=== PATIENT | female | born 1985 | race African-American/Black ===

== ENCOUNTER 2016-06-11 11:34 | Inpatient (IN) | payer MEDICAID ==
[~2016-06-11] VITALS: Ht 162.6 cm; Wt 59.3 kg
[2016-06-11 04:00] VITALS: PULSE 91; RESP 16; TEMP 98.9; O2SAT 100
[~2016-06-11 11:34] MED LIST: ACET500T3 PO; ZOFR4TAB3 SL
[2016-06-11 11:38] VITALS: BP 122/65; PULSE 115; RESP 24; TEMP 99; O2SAT 96
[2016-06-11] MEDS ORDERED: SODIUM CHLOR 0.9% 1000 ML INJ 1,000 ML IV SCH (11:55)
[2016-06-11] MEDS ORDERED: SODIUM CHLORIDE 0.9% FLUSH 5 ML FLUSH IVF PRN (12:00)
[2016-06-11] MEDS ORDERED: MORPHINE SULFATE 4 MG/ML INJ IV PUSH ONE ×2 (12:00→12:45)
[2016-06-11] MEDS ORDERED: ONDANSETRON HCL 4 MG/2 ML VIAL IVP ONE (12:00)
--- NOTE | 2016-06-11 12:15 | PD ---
HPI Chief Complaint: Abdominal Pain Time Seen by Provider: 11:55 Travel History International Travel<30 days: No Contact w/Intl Traveler<30days: No Traveled to known affect area: No History of Present Illness HPI 31-year-old female who is 12 weeks by dates, had a ultrasound done several weeks ago which she states was okay but she does not remember her OB/ DENTURE PROCESSOR name, presents to the ER today because she states that she has had a one- week history of lower abdominal discomfort, had seen for a hospital ER last week and had been diagnosed with UTI and prescribed antibiotics. She states however, that she had been busy and had got the antibiotic prescription filled 2 days ago and has not started on it yet. She comes to the ER today with worsening and back pains, lower abdominal pains and cramping, nausea and vomiting. She denies any vaginal bleeding or any other issues. Modifying Factors: None Associated Signs & Symptoms: Back pains, lower abdominal pains, nausea and vomiting Risk Factors: , recent UTI PFSH Past Medical History Anemia: Yes Diminished Hearing: No Gastrointestinal Disorders: Yes (CONSTIPATION) Headaches: Yes Immunizations Current: Yes Migraines: Yes ?: LMP: 03/16/2016 : 6 Para: 4 Miscarriage: 1 Social History Alcohol Use: No Tobacco Use: No Substance Use: No Allergies-Medications (Allergen,Severity, Reaction): Coded Allergies: No Known Allergies (Verified , 06/11/16) Reported Meds & Prescriptions Reported Meds & Active Scripts Active Acetaminophen 500 Mg Tab 500 Mg PO Q6H PRN Zofran Odt (Ondansetron Odt) 4 Mg Tab 4 Mg SL Q8HR PRN Review of Systems Except as stated in HPI: all other systems reviewed are Neg Physical Exam Narrative GENERAL: Well-nourished, well-developed young -Citizen Of [place] female patient in moderate distress. SKIN: Warm and dry. HEAD: Normocephalic. EYES: No scleral icterus. No injection or drainage. NECK: Supple, trachea midline. CARDIOVASCULAR: Regular rate and rhythm without murmurs, gallops, or rubs. RESPIRATORY: Breath sounds equal bilaterally. No accessory muscle use. GASTROINTESTINAL: Abdomen soft, gravid, mild right lower abdominal tenderness without guarding or rebound, nondistended. MUSCULOSKELETAL: No cyanosis, or edema. BACK: Nontender without obvious deformity. Mild right CVA tenderness. Data Data Last Documented VS Vital Signs Date Time Temp Pulse Resp B/P Pulse Ox O2 Delivery O2 Flow Rate FiO2 06/11/16 14:00 74 20 99/60 99 Nasal Cannula 06/11/16 13:00 98.5 Orders Complete Blood Count With Diff (06/11/16 11:55) Comprehensive Metabolic Panel (06/11/16 11:55) Urinalysis - C+S If Indicated (06/11/16 11:55) Iv Access Insert/Monitor (06/11/16 11:55) Ecg Monitoring (06/11/16 11:55) Oximetry (06/11/16 11:55) Morphine Inj (Morphine Inj) (06/11/16 12:00) Ondansetron Inj (Zofran Inj) (06/11/16 12:00) Sodium Chlor 0.9% 1000 Ml Inj (Ns 1000 M (06/11/16 11:55) Sodium Chloride 0.9% Flush (Ns Flush) (06/11/16 12:00) Us Kidney/Renal/Bladder (06/11/16 11:57) Morphine Inj (Morphine Inj) (06/11/16 12:45) Urine Culture (06/11/16 12:05) Sodium Chlor 0.9% 1000 Ml Inj (Ns 1000 M (06/11/16 14:00) Blood Culture (06/11/16 13:59) Ampicillin-Sulbactam Inj (Unasyn Inj) (06/11/16 14:00) Labs Laboratory Tests Test 06/11/16 12:05 White Blood Count 9.6 TH/MM3 Red Blood Count 4.21 MIL/MM3 Hemoglobin 11.8 GM/DL Hematocrit 35.2 % Mean Corpuscular Volume 83.5 FL Mean Corpuscular Hemoglobin 28.1 PG Mean Corpuscular Hemoglobin 33.6 % Concent Red Cell Distribution Width 14.7 % Platelet Count 186 TH/MM3 Mean Platelet Volume 8.0 FL Neutrophils (%) (Auto) 75.4 % Lymphocytes (%) (Auto) 16.6 % Monocytes (%) (Auto) 6.6 % Eosinophils (%) (Auto) 1.1 % Basophils (%) (Auto) 0.3 % Neutrophils # (Auto) 7.2 TH/MM3 Lymphocytes # (Auto) 1.6 TH/MM3 Monocytes # (Auto) 0.6 TH/MM3 Eosinophils # (Auto) 0.1 TH/MM3 Basophils # (Auto) 0.0 TH/MM3 CBC Comment DIFF FINAL Differential Comment Urine Color LIGHT-YELLOW Urine Turbidity HAZY Urine pH 8.0 Urine Specific [place] 1.009 Urine Protein TRACE mg/dL Urine Glucose (UA) NEG mg/dL Urine Ketones NEG mg/dL Urine Occult Blood TRACE Urine Nitrite NEG Urine Bilirubin NEG Urine Urobilinogen LESS THAN 2.0 MG/DL Urine Leukocyte Esterase LARGE Urine RBC 14 /hpf Urine WBC /hpf Urine Squamous Epithelial 2 /hpf Cells Urine Bacteria OCC /hpf Microscopic Urinalysis Comment CULTURE INDICATED Sodium Level 135 MEQ/L Potassium Level 3.7 MEQ/L Chloride Level 103 MEQ/L Carbon Dioxide Level 26.3 MEQ/L Anion Gap 6 MEQ/L Blood Urea Nitrogen 6 MG/DL Creatinine 0.73 MG/DL Estimat Glomerular Filtration 114 ML/MIN Rate Random Glucose 86 MG/DL Calcium Level 8.9 MG/DL Total Bilirubin 0.7 MG/DL Aspartate Amino Transf 14 U/L (AST/SGOT) Alanine Aminotransferase 14 U/L (ALT/SGPT) Alkaline Phosphatase 61 U/L Total Protein 7.6 GM/DL Albumin 3.4 GM/DL [facility] Medical Decision Making Medical Screen Exam Complete: Yes Emergency Medical Condition: Yes Medical Record Reviewed: Yes Interpretation(s) Laboratory Tests Test 06/11/16 12:05 Neutrophils (%) (Auto) 75.4 % (16.0-70.0) Urine Turbidity HAZY (CLEAR) Urine Occult Blood TRACE (NEG) Urine Leukocyte Esterase LARGE (NEG) Urine RBC 14 /hpf (0-3) Urine Bacteria OCC /hpf (NONE) Sodium Level 135 MEQ/L (136-145) Blood Urea Nitrogen 6 MG/DL (7-18) Aspartate Amino Transf 14 U/L (15-37) (AST/SGOT) Last 24 hours Impressions Renal Ultrasound 06/11/16 [id number] Signed Impressions: Service Date/Time: June 12:39 - CONCLUSION: Mild right hydronephrosis. This is a finding commonly seen in . Diffuse color Doppler flow of the right kidney appears somewhat prominent. Question any clinical evidence of pyelonephritis. Lincoln Guevara MD Differential Diagnosis Lower abdominal pain, back pains, nausea and vomitinghyperemesis gravidarum versus UTI versus pyelonephritis versus threatened AB Narrative Course On exam, she seems to have right sided symptoms. There is no significant guarding or rebound. Transabdominal ultrasound done by me shows IUP with good heart tones and movements. Her lab work did not indicate significant sepsis or dehydration or metabolic issues. It shows significant UTI. IV antibiotics were initiated in the ER to cultures were drawn. Ultrasound of the kidneys were done and there is some mild right sided hydronephrosis. At this point, patient appears to be doing badly at home, vomiting, in significant distress in the ER. My plan would be to admit her as an observation for further treatment. In addition, considering the right sided pain, and acute appendicitis cannot completely be ruled out although it is less likely considering clinical picture and lab work. However, I have talked her about obtaining CAT scan of the abdomen pelvis for further evaluation. I have talked her about radiation risk. Patient states that she wants to defer at this time. In addition, I have talked to OB ER physician regarding her case and he states that the patient can be medically admitted as an observation and consult to OB/ DENTURE PROCESSOR as needed. Case is discussed with Dr. Bowen for admission. Procedures Procedure Narrative Transabdominal ultrasound was done by me in the ER and shows IUP with good heart tones. Diagnosis Primary Impression: ACUTE PYELONEPHRITIS Admitting Information Admitting Physician Requests: Admit Fredy Weldon MD Jun 11, 2016 12:15 Fredy Weldon MD Jun 11, 2016 12:15
[2016-06-11 12:30] LABS: AUTOMATED NEUTROPHIL # 7.2 TH/MM3 (1.8-7.7); BASOPHIL % 0.3 % (0.0-2.0); EOSINOPHIL # 0.1 TH/MM3 (0-0.4); EOSINOPHIL % 1.1 % (0.0-4.0); HEMATOCRIT 35.2 % (35.0-46.0); HEMO FLAGS DIFF FINAL; LYMPH % 16.6 % (9.0-44.0); LYMPHOCYTE # 1.6 TH/MM3 (1.0-4.8); MEAN CELL VOLUME 83.5 FL (80.0-100.0); MEAN CORPUSCULAR HEMOGLOBIN 28.1 PG (27.0-34.0); MEAN CORPUSCULAR HGB CONC 33.6 % (32.0-36.0); MONO % 6.6 % (0.0-8.0); NEUT % 75.4 % (16.0-70.0); PLATELET COUNT 186 TH/MM3 (150-450); RED BLOOD COUNT 4.21 MIL/MM3 (4.00-5.30); RED CELL DISTRIBUTION WIDTH 14.7 % (11.6-17.2); WHITE BLOOD COUNT 9.6 TH/MM3 (4.0-11.0)
[2016-06-11 12:46] LABS: AST (GOT) 14 U/L (15-37); BACTERIA, URINE OCC /hpf; BICARBONATE 26.3 MEQ/L (21.0-32.0); BLOOD UREA NITROGEN 6 MG/DL (7-18); BLOOD, URINE TRACE (NEG); CHLORIDE 103 MEQ/L (98-107); GLOMERULAR FILTRATION RATE 114 ML/MIN (>89); GLUCOSE,URINE NEG (NEG); KETONE, URINE NEG (NEG); NITRITE,URINE NEG (NEG); POTASSIUM 3.7 MEQ/L (3.5-5.1); SODIUM (NA) 135 MEQ/L (136-145); SQUAMOUS EPITHELIAL CELL URINE 2 /hpf (0-5); URINE COLOR LIGHT-YELLOW (YELLW/STRAW)
[2016-06-11 12:47] LABS: ANION GAP 6 MEQ/L (5-15); COMMENT (UR) CULTURE INDICATED; CULTURE IF INDICATED CULTURE INDICATED
[2016-06-11 12:50] LABS: ALKALINE PHOSPHATASE 61 U/L (45-117); ALT (GPT) 14 U/L (10-53); TOTAL BILIRUBIN ADULT 0.7 MG/DL (0.2-1.0)
[2016-06-11 13:00] VITALS: BP 117/74; PULSE 108; RESP 18; TEMP 98.5; O2SAT 100
--- NOTE | 2016-06-11 13:37 | RADRPT ---
EXAM DATE/TIME: 06/11/2016 12:39 [place] COMPARISON: No previous studies available for comparison. INDICATIONS : Right flank pain. MEDICAL HISTORY : . SURGICAL HISTORY : None. ENCOUNTER: Initial ACUITY: 2 weeks PAIN SCORE: 9/10 LOCATION: Bilateral flank MEASUREMENTS: RIGHT KIDNEY: 9.8 x 6.1 x 6.2 cm LEFT KIDNEY: 9.6 x 5.3 x 4.5 cm FINDINGS: RIGHT KIDNEY: Mild right hydronephrosis. Somewhat prominent diffuse color Doppler flow may represent inflammatory c hange. No evidence of mass. LEFT KIDNEY: Renal cortex is normal in thickness and echotexture. No hydronephrosis, stone, or mass. BLADDER: Within normal limits given the degree of distension. CONCLUSION: Mild right hydronephrosis. This is a finding commonly seen in . Diffuse colo r Doppler flow of the right kidney appears somewhat prominent. Question any clinical evidence of pyel onephritis. Lincoln Guevara MD on June 11, 2016 at 13:33 Board Certified Radiologist. This report was verified electronically.
[2016-06-11 14:00] VITALS: BP 99/60; PULSE 74; RESP 20; O2SAT 99
[2016-06-11] MEDS ORDERED: AMPICILLIN-SULBACTAM INJ 3 GM in SODIUM CHLORIDE 0.9% INJ 100 ML IV ONE (14:00)
[2016-06-11] MEDS ORDERED: SODIUM CHLOR 0.9% 1000 ML INJ 1,000 ML IV ONE ×2 (14:00→15:00)
[2016-06-11] MEDS ORDERED: DOCUSATE SODIUM 100 MG CAP PO ONE (15:00)
[2016-06-11] MEDS: HEPARIN SODIUM - SQ 10,000 UNITS/ML VIAL SQ SCH (15:00)
[2016-06-11] MEDS ORDERED: MORPHINE SULFATE 4 MG/ML INJ IV PUSH PRN ×2 (15:00→17:00)
[2016-06-11] MEDS ORDERED: ACETAMINOPHEN 325 MG TAB PO PRN ×2 (15:00)
[2016-06-11] MEDS ORDERED: SODIUM CHLORIDE 0.9% FLUSH 5 ML FLUSH FLUSH PRN (15:00)
[2016-06-11] MEDS: SODIUM CHLOR 0.9% 1000 ML INJ 1,000 ML IV SCH (15:38)
[2016-06-11] MEDS ORDERED: CALNTAB PO (15:44)
[2016-06-11] MEDS: cefTRIAXone INJ 1,000 MG in SODIUM CHLORIDE 0.9% INJ 100 ML IV SCH (17:06)
[2016-06-11] MEDS: MORPHINE SULFATE 4 MG/ML INJ IV PUSH PRN (19:28)
[2016-06-11] MEDS: SODIUM CHLORIDE 0.9% FLUSH 5 ML FLUSH FLUSH SCH (19:28)
[2016-06-11 19:29] VITALS: BP 105/62; PULSE 102; RESP 18; O2SAT 98
--- NOTE | 2016-06-11 20:50 | HHI.HP ---
[facility] Service [place] [facility] Primary Care Physician No Primary Care Physician Admission Diagnosis /right sided pyelonephritis Diagnoses: Chief Complaint: Deferred entry patient seen earlier at 1500 hrs. Right flank pain Travel History International Travel<30 Days: No Contact w/Intl Traveler <30 Da: No Traveled to Known Affected Are: No Sepsis Criteria SIRS Criteria (2 or more): Heart rate over 90, RR > 20 or PaCO2 < 32 Sepsis Criteria (SIRS+source): Infect source susp/known Criteria Outcome: Meets sepsis criteria History of Present Illness This is a 31-year-old female was currently 12 weeks who presents to [facility] complaining of onset of lower abdominal pain which started approximately 1 week ago. The patient states that she works at the [employer] and was prescribed an oral antibiotic that she dropped off at the pharmacy but never picked up. Patient states that the pain progressed up to the right flank pain. The patient complains of chills, feeling hot and cold however is unsure if she has had fevers. Patient also comments of nausea assays have vomited 3 times. The patient currently denies chest pain or shortness of breath and is complaining of severe right flank pain which she describes as 10 over 10 radiating down to the lower abdomen. Denies vaginal bleeding or vaginal discharge. Otherwise the patient denies diarrhea, cough, headache, dizziness, dark stools. Review of Systems Other As per history of present illness, other systems reviewed by me and negative. Past Family Social History Past Medical History Denies Past Surgical History Denies Reported Medications Acetaminophen 500 Mg Tab 500 Mg PO Q6H PRN Zofran Odt (Ondansetron Odt) 4 Mg Tab 4 Mg SL Q8HR PRN Allergies: Coded Allergies: No Known Allergies (Verified , 06/11/16) Active Ordered Medications Current Medications Medications (Trade) Dose Ordered Sig/Mann Route Start Time Stop Time Status Last Admin (NS 1000 ml Inj) 1,000 ml @ 100 mls/hr Q10H IV 06/11/16 14:57 06/11/16 15:38 (NS Flush) 2 ml UNSCH PRN FLUSH 06/11/16 15:00 (NS Flush) 2 ml BID FLUSH 06/11/16 21:00 06/11/16 19:28 (Tylenol) 650 mg Q4H PRN PO 06/11/16 15:00 (Heparin Inj) 5,000 units Q8H SQ 06/11/16 15:00 (Tylenol) 650 mg Q6H PRN PO 06/11/16 15:00 Morphine Sulfate 2 mg 2 mg Q3H PRN IV PUSH 06/11/16 15:00 06/11/16 19:28 (Rocephin Inj/NS Inj) 100 ml @ 200 mls/hr Q24H IV 06/11/16 16:00 06/11/16 17:06 (Protonix) 40 mg DAILY PO 06/12/16 09:00 (Morphine Inj) 1 mg Q3HR PRN IV PUSH 06/11/16 17:00 Family History Patient states hypertension runs in the family Social History My smoking, drinking alcohol or using illicit drugs. Patient is single and has 3 children. Physical Exam Vital Signs Vital Signs Date Time Temp Pulse Resp B/P Pulse Ox O2 Delivery O2 Flow Rate FiO2 06/11/16 19:29 102 18 105/62 98 Room Air 06/11/16 14:00 74 20 99/60 99 Nasal Cannula 06/11/16 13:00 100 Room Air 06/11/16 13:00 98.5 108 18 117/74 100 Room Air 06/11/16 11:47 20 06/11/16 11:38 99.0 115 24 122/65 96 Room Air Physical Exam GENERAL: This is a well-nourished, well-developed patient, in moderate to severe distress due to pain. SKIN: No rashes, ecchymoses or lesions. Cool and dry. HEAD: Atraumatic. Normocephalic. No temporal or scalp tenderness. EYES: Pupils equal round and reactive. Extraocular motions intact. No scleral icterus. No injection or drainage. ENT: Nose without bleeding, purulent drainage or septal hematoma. Throat without erythema, tonsillar hypertrophy or exudate. Uvula midline. Airway patent. NECK: Trachea midline. No JVD or lymphadenopathy. Supple, nontender, no meningeal signs. CARDIOVASCULAR: Regular rate and rhythm without murmurs, gallops, or rubs. RESPIRATORY: Clear to auscultation. Breath sounds equal bilaterally. No wheezes , rales, or rhonchi. GASTROINTESTINAL: Abdomen soft, tender to palpation of hypogastric region, gravid uterus, positive right CVA tenderness. No hepato-splenomegaly, or palpable masses. No guarding. MUSCULOSKELETAL: Extremities without clubbing, cyanosis, or edema. No joint tenderness, effusion, or edema noted. No calf tenderness. Negative Homans sign bilaterally. NEUROLOGICAL: Awake and alert. Cranial nerves II through XII intact. Motor and sensory grossly within normal limits. Five out of 5 muscle strength in all muscle groups. Normal speech. Laboratory Laboratory Tests Test 06/11/16 06/11/16 12:05 16:08 White Blood Count 9.6 Red Blood Count 4.21 Hemoglobin 11.8 Hematocrit 35.2 Mean Corpuscular Volume 83.5 Mean Corpuscular Hemoglobin 28.1 Mean Corpuscular Hemoglobin 33.6 Concent Red Cell Distribution Width 14.7 Platelet Count 186 Mean Platelet Volume 8.0 Neutrophils (%) (Auto) 75.4 Lymphocytes (%) (Auto) 16.6 Monocytes (%) (Auto) 6.6 Eosinophils (%) (Auto) 1.1 Basophils (%) (Auto) 0.3 Neutrophils # (Auto) 7.2 Lymphocytes # (Auto) 1.6 Monocytes # (Auto) 0.6 Eosinophils # (Auto) 0.1 Basophils # (Auto) 0.0 CBC Comment DIFF FINAL Differential Comment Urine Color LIGHT-YELLOW Urine Turbidity HAZY Urine pH 8.0 Urine Specific [place] 1.009 Urine Protein TRACE Urine Glucose (UA) NEG Urine Ketones NEG Urine Occult Blood TRACE Urine Nitrite NEG Urine Bilirubin NEG Urine Urobilinogen LESS THAN 2.0 Urine Leukocyte Esterase LARGE Urine RBC 14 Urine WBC Urine Squamous Epithelial 2 Cells Urine Bacteria OCC Microscopic Urinalysis Comment CULTURE INDICATED Sodium Level 135 Potassium Level 3.7 Chloride Level 103 Carbon Dioxide Level 26.3 Anion Gap 6 Blood Urea Nitrogen 6 Creatinine 0.73 Estimat Glomerular Filtration 114 Rate Random Glucose 86 Calcium Level 8.9 Total Bilirubin 0.7 Aspartate Amino Transf 14 (AST/SGOT) Alanine Aminotransferase 14 (ALT/SGPT) Alkaline Phosphatase 61 Total Protein 7.6 Albumin 3.4 Lactic Acid Level 0.5 Date/Time Procedure Status Source Growth 06/11/16 14:20 Aerobic Blood Culture Received Blood Peripheral Pending 06/11/16 14:20 Anaerobic Blood Culture Received Blood Peripheral Pending 06/11/16 12:05 Urine Culture Received Urine Random Urine Pending Result Diagram: 06/11/16 1205 06/11/16 1205 Septic Shock Reassessment Heart: Regular rate and rhythm Lungs: Clear Skin: Warm Peripheral Pulses: Bounding Right Radial Bounding Left Radial Bounding Right Dorsalis Pedis Bounding Left Dorsalis Pedis Capillary Refill: <2 seconds Assessment and Plan Problem List: (1) Sepsis ICD Code: A41.9 Status: Acute (2) Pyelonephritis ICD Code: N12 Status: Acute Assessment and Plan 31-year-old female who is 12 weeks and presents with sepsis secondary to UTI and pyelonephritis. Patient with tachycardia and tachypnea as well as ulcerative UTI on urinalysis as well as right CVA tenderness. Admit the patient to the medical floor I will place the patient on IV normal saline at 100 miles per hour, patient received 2 L of IV fluids in the form of normal saline bolus in the emergency department. Received Unasyn in the emergency department. I will place on IV Rocephin. IV Reglan for nausea and vomiting Pain control with IV morphine. I will set the patient on oral Colace. Follow-up blood cultures and urine cultures and tailor antibiotics accordingly Check renal ultrasound Consult BALLET SOLOIST for monitoring Heparin for DVT prophylaxis PPI for GI prophylaxis. Code Status Full code Discussed Condition With Patient, RN Physician Certification 2 Midnight Certification Type: Admission for Inpatient Services Order for Inpatient Services The services are ordered in accordance with Medicare regulations or non- Medicare payer requirements, as applicable. In the case of services not specified as inpatient-only, they are appropriately provided as inpatient services in accordance with the 2-midnight benchmark. Estimated LOS (days): 2 days is the estimated time the patient will need to remain in the hospital, assuming treatment plan goals are met and no additional complications. Post-Hospital Plan: Home Wolfgang Gonzales MD Jun 11, 2016 20:50
[2016-06-11 23:35] VITALS: BP 100/65; PULSE 87; RESP 18; TEMP 98; O2SAT 99
[2016-06-12] MEDS: MORPHINE SULFATE 4 MG/ML INJ IV PUSH PRN ×4 (00:11→15:00)
[2016-06-12] MEDS: HEPARIN SODIUM - SQ 10,000 UNITS/ML VIAL SQ SCH ×4 (00:12→23:00)
[2016-06-12] MEDS: SODIUM CHLOR 0.9% 1000 ML INJ 1,000 ML IV SCH (02:00)
[2016-06-12 04:41] VITALS: BP 108/62; PULSE 91; RESP 16; TEMP 98.9; O2SAT 100
[2016-06-12 06:12] LABS: AUTOMATED NEUTROPHIL # 3.1 TH/MM3 (1.8-7.7); BASOPHIL % 0.6 % (0.0-2.0); EOSINOPHIL # 0.1 TH/MM3 (0-0.4); EOSINOPHIL % 1.7 % (0.0-4.0); HEMATOCRIT 26.9 % (35.0-46.0); HEMO FLAGS DIFF FINAL; LYMPH % 32.2 % (9.0-44.0); LYMPHOCYTE # 1.9 TH/MM3 (1.0-4.8); MEAN CELL VOLUME 83.6 FL (80.0-100.0); MEAN CORPUSCULAR HEMOGLOBIN 28.2 PG (27.0-34.0); MEAN CORPUSCULAR HGB CONC 33.7 % (32.0-36.0); MONO % 12.6 % (0.0-8.0); NEUT % 52.9 % (16.0-70.0); PLATELET COUNT 140 TH/MM3 (150-450); RED BLOOD COUNT 3.22 MIL/MM3 (4.00-5.30); RED CELL DISTRIBUTION WIDTH 14.6 % (11.6-17.2); WHITE BLOOD COUNT 5.9 TH/MM3 (4.0-11.0)
[2016-06-12 06:32] LABS: BICARBONATE 23.8 MEQ/L (21.0-32.0); CALCIUM-PROTEIN CORRECTED 8.4 MG/DL (8.5-10.1); POTASSIUM 3.6 MEQ/L (3.5-5.1); TOTAL BILIRUBIN ADULT 0.8 MG/DL (0.2-1.0)
[2016-06-12 08:00] VITALS: BP 99/57; PULSE 90; RESP 18; TEMP 97.4; O2SAT 100
--- NOTE | 2016-06-12 08:47 | PD.CONS ---
HPI Chief Complaint back & abdominal pain Date Seen: Jun 12, 2016 Travel History International Travel<30 Days: No Contact w/Intl Traveler<30Days: No Known Affected Area: No History of Present Illness HPI This patient is a 31-year-old black female visit 12 weeks gestation presents with increasing back and abdominal pain unrelieved by medical management as an outpatient. She gets her care through [facility]. And she actually works in [facility]. She complains also night sweats fever chills, no vaginal bleeding. She was seen in the emergency room. [place] an ultrasound done which showed a viable fetus with heartbeat. Para: 4 : 6 Miscarriage: 1 History Obstetric History Obstetric History 4 vaginal deliveries Social History Alcohol Use: No Tobacco Use: No Substance Abuse: No Allergies-Medications (Allergen,Severity, Reaction): Coded Allergies: No Known Allergies (Verified , 06/11/16) Home Meds Reported Medications Vitamin (Calna)1 Tab Tab1 Tab PO DAILY 06/11/16 Discontinued Scripts Acetaminophen 500 Mg Uff287 Mg PO Q6H PRN (PAIN SCALE 1 TO 4) #20 TAB Ref 0 Prov:Lisette Barajas DO 04/26/16 Ondansetron Odt (Zofran Odt)4 Mg Tab4 Mg SL Q8HR PRN (Nausea/Vomiting) #10 TAB Ref 0 Prov:Lisette Barajas DO 04/26/16 Review of Systems General / Constitutional: Fever, Chills Gastrointestinal: Nausea Genitourinary: Hematuria, Pelvic Pain Physical Exam Narrative GENERAL: Well-nourished, well-developed patient. moderately ill , lethargic SKIN: Warm and dry. HEAD: Normocephalic and atraumatic. EYES: No scleral icterus. No injection or drainage. ENT: No nasal drainage noted. Mucous membranes pink. Airway patent. NECK: Supple, trachea midline. No JVD. CARDIOVASCULAR: Regular rate and rhythm without murmurs, gallops, or rubs. RESPIRATORY: Breath sounds equal bilaterally. No accessory muscle use. BREASTS: Bilateral exam showed no masses , no retractions, no nipple discharge. ABDOMEN/GI: Abdomen soft, non-tender, bowel sounds present, no rebound, no guarding ,+ R CVAT Gravid to [-12] weeks size GENITOURINARY: External Genitalia: intact and normal in appearance BUS glands: [-] Cervix: [-]closed Dilatation: [-] closed uterus 12 wk size EXTREMITIES: No cyanosis or edema. BACK: Nontender without obvious deformity. No CVA tenderness. NEUROLOGICAL: Awake and alert. Motor and sensory grossly within normal limits. Five out of 5 muscle strength in all muscle groups. Normal speech. Data Data Orders Complete Blood Count With Diff (06/11/16 11:55) Comprehensive Metabolic Panel (06/11/16 11:55) Urinalysis - C+S If Indicated (06/11/16 11:55) Iv Access Insert/Monitor (06/11/16 11:55) Ecg Monitoring (06/11/16 11:55) Oximetry (06/11/16 11:55) Morphine Inj (Morphine Inj) (06/11/16 12:00) Ondansetron Inj (Zofran Inj) (06/11/16 12:00) Sodium Chlor 0.9% 1000 Ml Inj (Ns 1000 M (06/11/16 11:55) Sodium Chloride 0.9% Flush (Ns Flush) (06/11/16 12:00) Us Kidney/Renal/Bladder (06/11/16 11:57) Morphine Inj (Morphine Inj) (06/11/16 12:45) Urine Culture (06/11/16 12:05) Sodium Chlor 0.9% 1000 Ml Inj (Ns 1000 M (06/11/16 14:00) Blood Culture (06/11/16 13:59) Ampicillin-Sulbactam Inj (Unasyn Inj) (06/11/16 14:00) Admit Order (Ed Use Only) (06/11/16 14:15) Sodium Chlor 0.9% 1000 Ml Inj (Ns 1000 M (06/11/16 15:00) Admit To Inpatient (06/11/16 ) Vital Signs (Adult) Q4H (06/11/16 14:57) Activity Bed Rest With Brp (06/11/16 14:57) Programmer Analyst / Telemetry .CONTINUOUS (06/11/16 14:57) Intake + Output JERAMIE.QSHIFT (06/11/16 14:57) Diet Regular Basic (06/11/16 Dinner) Sodium Chlor 0.9% 1000 Ml Inj (Ns 1000 M (06/11/16 14:57) Sodium Chloride 0.9% Flush (Ns Flush) (06/11/16 15:00) Sodium Chloride 0.9% Flush (Ns Flush) (06/11/16 21:00) Acetaminophen (Tylenol) (06/11/16 15:00) Comprehensive Metabolic Panel (06/12/16 06:00) Complete Blood Count With Diff (06/12/16 06:00) Heparin Inj (Heparin Inj) (06/11/16 15:00) Scd Bilateral/Knee High JERAMIE.BID (06/11/16 14:57) Acetaminophen (Tylenol) (06/11/16 15:00) Inpatient Certification (06/11/16 ) Morphine Inj (Morphine Inj) (06/11/16 15:00) Morphine Inj (Morphine Inj) (06/11/16 15:00) Docusate Sodium (Colace) (06/11/16 15:00) Ceftriaxone Inj (Rocephin Inj) (06/11/16 16:00) Pantoprazole (Protonix) (06/12/16 09:00) Lactic Acid Sepsis Protocol (06/11/16 14:57) Morphine Inj (Morphine Inj) (06/11/16 17:00) Consult Obstetrics (06/11/16 20:53) (Hub Use Only)Inp Phy Cons/Ref (06/11/16 ) Us Ob Pelvis <14wks Fetus (06/12/16 ) Labs Laboratory Tests Test 06/11/16 06/11/16 06/12/16 12:05 16:08 05:28 White Blood Count 9.6 5.9 Red Blood Count 4.21 3.22 Hemoglobin 11.8 9.1 Hematocrit 35.2 26.9 Mean Corpuscular Volume 83.5 83.6 Mean Corpuscular Hemoglobin 28.1 28.2 Mean Corpuscular Hemoglobin 33.6 33.7 Concent Red Cell Distribution Width 14.7 14.6 Platelet Count 186 140 Mean Platelet Volume 8.0 8.1 Neutrophils (%) (Auto) 75.4 52.9 Lymphocytes (%) (Auto) 16.6 32.2 Monocytes (%) (Auto) 6.6 12.6 Eosinophils (%) (Auto) 1.1 1.7 Basophils (%) (Auto) 0.3 0.6 Neutrophils # (Auto) 7.2 3.1 Lymphocytes # (Auto) 1.6 1.9 Monocytes # (Auto) 0.6 0.7 Eosinophils # (Auto) 0.1 0.1 Basophils # (Auto) 0.0 0.0 CBC Comment DIFF FINAL DIFF FINAL Differential Comment Urine Color LIGHT-YELLOW Urine Turbidity HAZY Urine pH 8.0 Urine Specific [place] 1.009 Urine Protein TRACE Urine Glucose (UA) NEG Urine Ketones NEG Urine Occult Blood TRACE Urine Nitrite NEG Urine Bilirubin NEG Urine Urobilinogen LESS THAN 2.0 Urine Leukocyte Esterase LARGE Urine RBC 14 Urine WBC Urine Squamous Epithelial 2 Cells Urine Bacteria OCC Microscopic Urinalysis Comment CULTURE INDICATED Sodium Level 135 138 Potassium Level 3.7 3.6 Chloride Level 103 108 Carbon Dioxide Level 26.3 23.8 Anion Gap 6 6 Blood Urea Nitrogen 6 3 Creatinine 0.73 0.66 Estimat Glomerular Filtration 114 128 Rate Random Glucose 86 80 Calcium Level 8.9 7.4 Total Bilirubin 0.7 0.8 Aspartate Amino Transf 14 11 (AST/SGOT) Alanine Aminotransferase 14 9 (ALT/SGPT) Alkaline Phosphatase 61 41 Total Protein 7.6 5.3 Albumin 3.4 2.2 Lactic Acid Level 0.5 Protein Corrected Calcium 8.4 Date/Time Procedure Status Source Growth 06/11/16 14:20 Aerobic Blood Culture Received Blood Peripheral Pending 06/11/16 14:20 Anaerobic Blood Culture Received Blood Peripheral Pending 06/11/16 12:05 Urine Culture Received Urine Random Urine Pending [facility] Interpretation(s) 31-year-old black female 12 weeks with OB care out of [place] now presents with back pain and abdominal pain fever chills and nausea, she is admitted for pyelonephritis, IV antibiotic therapy, obstetric ultrasound Plan Plan is IV antibiotic therapy until she is afebrile for 24 hours, and had clinical improvement in her pain, and tolerating solid foods well Admitting diagnosis: /right sided pyelonephritis Cordell Bergeron II, MD Jun 12, 2016 08:47
[2016-06-12] MEDS: PANTOPRAZOLE SOD 40 MG DELAYED RELEASE TAB PO SCH (09:42)
[2016-06-12] MEDS: SODIUM CHLORIDE 0.9% FLUSH 5 ML FLUSH FLUSH SCH ×2 (09:43→20:12)
[2016-06-12 12:00] VITALS: BP 99/58; PULSE 96; RESP 18; TEMP 98.4; O2SAT 99
[2016-06-12] MEDS ORDERED: SODIUM CHLORID 0.9% 500 ML INJ 500 ML IV ONE (15:15)
[2016-06-12] MEDS ORDERED: POTASSIUM CHLORIDE 20 MEQ CONTROLLED RELEASE TAB PO ONE (15:15)
--- NOTE | 2016-06-12 15:15 | HHI.PR ---
Subjective Remarks Patient noted to be hypotensive. The patient still complains of flank pain Denies fevers but states she was warm, still has chills. Denies hematuria Denies chest pain or signs of breath Abdominal pain, diarrhea Denies vaginal discharge or bleeding. Objective Vitals Vital Signs Date Time Temp Pulse Resp B/P Pulse Ox O2 Delivery O2 Flow Rate FiO2 06/12/16 12:00 98.4 96 18 99/58 99 06/12/16 08:00 97.4 90 18 99/57 100 06/12/16 04:41 98.9 91 16 108/62 100 06/11/16 23:35 98.0 87 18 100/65 99 06/11/16 19:29 102 18 105/62 98 Room Air I/O 06/11/16 06/11/16 06/11/16 06/12/16 06/12/16 06/12/16 07:00 15:00 23:00 07:00 15:00 23:00 Intake Total 720 ml Output Total 500 ml Balance 220 ml Intake Oral 720 ml Output Urine Total 500 ml Result Diagram: 06/12/16 0528 06/12/16 0528 Imaging Last Impressions Renal Ultrasound 06/11/16 1157 Signed Impressions: Service Date/Time: June 12:39 - CONCLUSION: Mild right hydronephrosis. This is a finding commonly seen in . Diffuse color Doppler flow of the right kidney appears somewhat prominent. Question any clinical evidence of pyelonephritis. Lincoln Guevara MD Objective Remarks GENERAL: This is a well-nourished, well-developed patient, mild to moderate distress due to flank pain. SKIN: No rashes, ecchymoses or lesions. Warm and moist. HEAD: Atraumatic. Normocephalic. No temporal or scalp tenderness. EYES: Pupils equal round and reactive. Extraocular motions intact. No scleral icterus. No injection or drainage. ENT: Nose without bleeding, purulent drainage or septal hematoma. Throat without erythema, tonsillar hypertrophy or exudate. Uvula midline. Airway patent. NECK: Trachea midline. No JVD or lymphadenopathy. Supple, nontender, no meningeal signs. CARDIOVASCULAR: Regular rate and rhythm without murmurs, gallops, or rubs. RESPIRATORY: Clear to auscultation. Breath sounds equal bilaterally. No wheezes , rales, or rhonchi. GASTROINTESTINAL: Abdomen soft, tender to palpation of hypogastric region, gravid uterus, positive right CVA tenderness. No hepato-splenomegaly, or palpable masses. No guarding. MUSCULOSKELETAL: Extremities without clubbing, cyanosis, or edema. No joint tenderness, effusion, or edema noted. No calf tenderness. Negative Homans sign bilaterally. NEUROLOGICAL: Awake and alert. Cranial nerves II through XII intact. Motor and sensory grossly within normal limits. Five out of 5 muscle strength in all muscle groups. Normal speech. Medications and IVs Current Medications Medications (Trade) Dose Ordered Sig/Mann Route Start Time Stop Time Status Last Admin (NS 1000 ml Inj) 1,000 ml @ 100 mls/hr Q10H IV 06/11/16 14:57 06/12/16 02:00 (NS Flush) 2 ml UNSCH PRN FLUSH 06/11/16 15:00 (NS Flush) 2 ml BID FLUSH 06/11/16 21:00 06/12/16 20:12 (Tylenol) 650 mg Q4H PRN PO 06/11/16 15:00 (Heparin Inj) 5,000 units Q8H SQ 06/11/16 15:00 06/12/16 16:29 (Tylenol) 650 mg Q6H PRN PO 06/11/16 15:00 Morphine Sulfate 2 mg 2 mg Q3H PRN IV PUSH 06/11/16 15:00 06/12/16 15:00 (Rocephin Inj/NS Inj) 100 ml @ 200 mls/hr Q24H IV 06/11/16 16:00 06/12/16 16:29 (Protonix) 40 mg DAILY PO 06/12/16 09:00 06/12/16 09:42 (Morphine Inj) 1 mg Q3HR PRN IV PUSH 06/11/16 17:00 Urinary Catheter: No Vascular Central Line Catheter: No A/P Problem List: (1) Sepsis ICD Code: A41.9 Status: Acute Plan: Sepsis due to pyelonephritis. Continue IV Rocephin. Urine cultures growing gram-negative rods. Blood culture negative 1 (2) Pyelonephritis ICD Code: N12 Status: Acute Plan: Continue IV antibiotics as above. Pain control with IV morphine. I will add oral Percocet Renal ultrasound as above (3) Early stage of ICD Code: Z33.1 Status: Acute Plan: Appreciate obstetrics recommendations (4) Hypotension ICD Code: I95.9 Status: Acute Plan: Hypotension likely secondary to sepsis, we'll give IV fluid bolus with 500 mL of IV normal saline (5) Hypocalcemia ICD Code: E83.51 Status: Acute Plan: Likely due to decreased oral intake secondary to pyelonephritis and acute illness. I will replete with IV calcium chloride and continue to monitor CMP. Assessment and Plan DVT prophylaxis: SCDs, heparin subcutaneous GI prophylaxis: PPI Discharge Planning Pending clinical improvement. Continue to monitor and the medical floor. Problem Qualifiers (1) Sepsis: Qualified Code: A41.9 - Sepsis, due to unspecified organism Wolfgang Gonzales MD Jun 12, 2016 15:15
[2016-06-12 15:58] VITALS: BP 106/59; PULSE 110; RESP 18; TEMP 97.8; O2SAT 99
[2016-06-12] MEDS: cefTRIAXone INJ 1,000 MG in SODIUM CHLORIDE 0.9% INJ 100 ML IV SCH (16:29)
[2016-06-12] MEDS ORDERED: CALCIUM CHLORIDE INJ 1 GM in SODIUM CHLORIDE 0.9% INJ 100 ML IV ONE (17:00)
[2016-06-12 20:00] VITALS: BP 100/56; PULSE 97; RESP 18; TEMP 98.1; O2SAT 100
[2016-06-12] MEDS ORDERED: oxyCODONE/ACETAMINOPHEN 5 MG/325 MG TAB PO PRN (22:45)
[2016-06-12] MEDS ORDERED: MORPHINE SULFATE 4 MG/ML INJ IV PUSH PRN (22:45)
[2016-06-13] VITALS (7 sets, daily range): BP systolic 90–120; BP diastolic 55–66; PULSE 64–88; RESP 16–18; TEMP 96.1–98.2; O2SAT 97–100
[2016-06-13] MEDS: oxyCODONE/ACETAMINOPHEN 5 MG/325 MG TAB PO PRN ×3 (06:22→16:32)
[2016-06-13] MEDS: HEPARIN SODIUM - SQ 10,000 UNITS/ML VIAL SQ SCH ×2 (06:23→16:32)
[2016-06-13] MEDS ORDERED: SODIUM CHLORID 0.9% 500 ML INJ 500 ML IV ONE (11:00)
[2016-06-13] MEDS: SODIUM CHLORIDE 0.9% FLUSH 5 ML FLUSH FLUSH SCH ×2 (11:14→20:29)
[2016-06-13] MEDS: PANTOPRAZOLE SOD 40 MG DELAYED RELEASE TAB PO SCH (11:14)
--- NOTE | 2016-06-13 11:42 | HHI.PR ---
Subjective Remarks Patient again noted to be hypotensive Patient c/o severe right flank pain radiating to RLQ Denies cp/sob denies fevers/chills feels nauseous but has not vomited denies vaginal bleeding or discharge Objective Vitals Vital Signs Date Time Temp Pulse Resp B/P Pulse Ox O2 Delivery O2 Flow Rate FiO2 06/13/16 07:11 96.1 73 17 91/56 98 06/13/16 04:00 97.3 64 18 97/59 99 06/13/16 00:00 98.1 83 16 100/57 97 06/12/16 20:00 98.1 97 18 100/56 100 06/12/16 15:58 97.8 110 18 106/59 99 06/12/16 12:00 98.4 96 18 99/58 99 I/O 06/12/16 06/12/16 06/12/16 06/13/16 06/13/16 06/13/16 07:00 15:00 23:00 07:00 15:00 23:00 Intake Total 720 ml 600 ml 600 ml 240 ml Output Total 500 ml Balance 220 ml 600 ml 600 ml 240 ml Intake Oral 720 ml 600 ml 600 ml 240 ml Output Urine Total 500 ml # Voids 2 3 1 # Bowel Movements 0 0 0 Result Diagram: 06/12/16 0528 06/12/16 0528 Imaging Last 72 hours Impressions Renal Ultrasound 06/11/16 1157 Signed Impressions: Service Date/Time: June 12:39 - CONCLUSION: Mild right hydronephrosis. This is a finding commonly seen in . Diffuse color Doppler flow of the right kidney appears somewhat prominent. Question any clinical evidence of pyelonephritis. Lincoln Guevara MD Objective Remarks GENERAL: This is a well-nourished, well-developed patient, mild to moderate distress due to flank pain. Patient seen walking hunched over. SKIN: No rashes, ecchymoses or lesions. Warm and moist. HEAD: Atraumatic. Normocephalic. No temporal or scalp tenderness. EYES: Pupils equal round and reactive. Extraocular motions intact. No scleral icterus. No injection or drainage. ENT: Nose without bleeding, purulent drainage or septal hematoma. Throat without erythema, tonsillar hypertrophy or exudate. Uvula midline. Airway patent. NECK: Trachea midline. No JVD or lymphadenopathy. Supple, nontender, no meningeal signs. CARDIOVASCULAR: Regular rate and rhythm without murmurs, gallops, or rubs. RESPIRATORY: Clear to auscultation. Breath sounds equal bilaterally. No wheezes , rales, or rhonchi. GASTROINTESTINAL: Abdomen soft, tender to palpation of hypogastric region, gravid uterus, positive right CVA tenderness. No hepato-splenomegaly, or palpable masses. No guarding. MUSCULOSKELETAL: Extremities without clubbing, cyanosis, or edema. No joint tenderness, effusion, or edema noted. No calf tenderness. Negative Homans sign bilaterally. NEUROLOGICAL: Awake and alert. Cranial nerves II through XII intact. Motor and sensory grossly within normal limits. Five out of 5 muscle strength in all muscle groups. Normal speech. Medications and IVs Current Medications Medications (Trade) Dose Ordered Sig/Mann Route Start Time Stop Time Status Last Admin (NS 1000 ml Inj) 1,000 ml @ 100 mls/hr Q10H IV 06/11/16 14:57 06/12/16 02:00 (NS Flush) 2 ml UNSCH PRN FLUSH 06/11/16 15:00 (NS Flush) 2 ml BID FLUSH 06/11/16 21:00 06/12/16 20:12 (Tylenol) 650 mg Q4H PRN PO 06/11/16 15:00 (Heparin Inj) 5,000 units Q8H SQ 06/11/16 15:00 06/13/16 06:23 Acetaminophen 650 mg 650 mg Q6H PRN PO 06/11/16 15:00 (Rocephin Inj/NS Inj) 100 ml @ 200 mls/hr Q24H IV 06/11/16 16:00 06/12/16 16:29 (Protonix) 40 mg DAILY PO 06/12/16 09:00 06/12/16 09:42 (Percocet 5-325 Mg) 1 tab Q4H PRN PO 06/12/16 22:45 (Percocet 5-325 Mg) 2 tab Q4H PRN PO 06/12/16 22:45 06/13/16 06:22 (Morphine Inj) 2 mg Q3H PRN IV PUSH 06/12/16 22:45 06/12/16 22:54 A/P Problem List: (1) Sepsis ICD Code: A41.9 Status: Acute (2) Pyelonephritis ICD Code: N12 Status: Acute (3) Early stage of ICD Code: Z33.1 Status: Acute (4) Hypotension ICD Code: I95.9 Status: Acute (5) Hypocalcemia ICD Code: E83.51 Status: Acute (6) Constipation ICD Code: K59.00 Status: Acute Plan: Probably a combination of delayed transit and drug-induced with opiates that the patient is being administered. I will set the patient on oral senna and Colace. Assessment and Plan (1) Sepsis Plan: Sepsis due to pyelonephritis. Continue IV Rocephin. Urine cultures growing gram-negative rods.Fu ID and sensitivities. Will adjust antibiotics accordingly. Blood culture negative x2. (2) Pyelonephritis Plan: Continue IV antibiotics as above. Continue pain control w IV morphine and pain control. Renal ultrasound showed mild right hydronephrosis which as per report isn't, and finding in . Diffuse color Doppler flow of the right kidney appears somewhat permanent. Question any clinical evidence of pyelonephritis. If right flank pain continues to be severe and is not improving by tomorrow then I will consider doing a CT scan of the abdomen and pelvis. (3) Early stage of Plan: Appreciate obstetrics recommendations. Plan is to treat with IV antibiotics. Obstetrics ultrasound pending. (4) Hypotension Plan: Patient noted to be hypotensive on , the patient was given half a liter of normal saline IV bolus and IV fluids were continued. Hypotension still persistent and 06/13/16. I will give 500 ml IV normal saline bolus again today. Will increase NS to 125 ml/hr. (5) Hypocalcemia Plan: Likely due to decreased oral intake secondary to pyelonephritis and acute illness. I will replete with IV calcium chloride and continue to monitor CMP. 2/3 fu CMP Assessment and Plan DVT prophylaxis: SCDs, heparin subcutaneous GI prophylaxis: PPI Discharge Planning Pending clinical improvement. Continue to monitor and the medical floor. Problem Qualifiers (1) Sepsis: Qualified Code: A41.9 - Sepsis, due to unspecified organism (2) Constipation: Qualified Code: K59.00 - Constipation, unspecified constipation type Wolfgang Gonzales MD Jun 13, 2016 11:42
[2016-06-13] MEDS: DOCUSATE SODIUM 50 MG/SENNA 8.6 MG TAB PO SCH ×2 (11:45→20:28)
[2016-06-13 13:12] LABS: ANION GAP 5 MEQ/L (5-15); AST (GOT) 11 U/L (15-37); BICARBONATE 26.6 MEQ/L (21.0-32.0); BLOOD UREA NITROGEN 3 MG/DL (7-18); CHLORIDE 105 MEQ/L (98-107); GLOMERULAR FILTRATION RATE 122 ML/MIN (>89); POTASSIUM 3.6 MEQ/L (3.5-5.1); SODIUM (NA) 137 MEQ/L (136-145)
[2016-06-13 13:15] LABS: ALKALINE PHOSPHATASE 47 U/L (45-117); ALT (GPT) 11 U/L (10-53); TOTAL BILIRUBIN ADULT 0.3 MG/DL (0.2-1.0)
[2016-06-13] MEDS: cefTRIAXone INJ 1,000 MG in SODIUM CHLORIDE 0.9% INJ 100 ML IV SCH (16:31)
[2016-06-13] MEDS: SODIUM CHLOR 0.9% 1000 ML INJ 1,000 ML IV SCH (16:57)
[2016-06-14] MEDS: oxyCODONE/ACETAMINOPHEN 5 MG/325 MG TAB PO PRN ×4 (00:23→21:05)
[2016-06-14] MEDS: HEPARIN SODIUM - SQ 10,000 UNITS/ML VIAL SQ SCH ×4 (00:24→23:41)
[2016-06-14 00:45] VITALS: BP 111/62; PULSE 95; RESP 16; TEMP 98.1; O2SAT 97
[2016-06-14] MEDS: SODIUM CHLOR 0.9% 1000 ML INJ 1,000 ML IV SCH ×2 (02:57→12:57)
[2016-06-14 04:27] VITALS: BP 99/57; PULSE 83; RESP 16; TEMP 98.7; O2SAT 97
[2016-06-14 07:55] VITALS: BP 101/58; PULSE 84; RESP 16; TEMP 98.7; O2SAT 100
[2016-06-14 08:02] LABS: HEMATOCRIT 28.1 % (35.0-46.0); MEAN CELL VOLUME 84.7 FL (80.0-100.0); MEAN CORPUSCULAR HEMOGLOBIN 28.4 PG (27.0-34.0); MEAN CORPUSCULAR HGB CONC 33.6 % (32.0-36.0); PLATELET COUNT 166 TH/MM3 (150-450); RED BLOOD COUNT 3.32 MIL/MM3 (4.00-5.30); RED CELL DISTRIBUTION WIDTH 14.6 % (11.6-17.2); REVIEW FLAG FINAL; WHITE BLOOD COUNT 4.9 TH/MM3 (4.0-11.0)
[2016-06-14 08:44] LABS: POTASSIUM 4.1 MEQ/L (3.5-5.1)
[2016-06-14] MEDS: SODIUM CHLORIDE 0.9% FLUSH 5 ML FLUSH FLUSH SCH ×2 (09:00→21:05)
[2016-06-14] MEDS: PANTOPRAZOLE SOD 40 MG DELAYED RELEASE TAB PO SCH (09:16)
[2016-06-14] MEDS: DOCUSATE SODIUM 50 MG/SENNA 8.6 MG TAB PO SCH ×2 (09:17→21:05)
[2016-06-14 11:38] VITALS: BP 105/59; PULSE 90; RESP 16; TEMP 97.9; O2SAT 99
--- NOTE | 2016-06-14 14:56 | HHI.PR ---
Subjective Remarks Patient states pain is improving pain however still 6/10 on intensity denies fevers/chills denies sob Objective Vitals Vital Signs Date Time Temp Pulse Resp B/P Pulse Ox O2 Delivery O2 Flow Rate FiO2 06/14/16 11:38 97.9 90 16 105/59 99 06/14/16 07:55 98.7 84 16 101/58 100 06/14/16 04:27 98.7 83 16 99/57 97 06/14/16 00:45 98.1 95 16 111/62 97 06/13/16 20:45 102/66 06/13/16 20:36 98.2 81 16 120/66 98 06/13/16 16:15 97.7 87 17 90/55 100 I/O 06/13/16 06/13/16 06/13/16 06/14/16 06/14/16 06/14/16 07:00 15:00 23:00 07:00 15:00 23:00 Intake Total 240 ml 720 ml 1620 ml 1358 ml Balance 240 ml 720 ml 1620 ml 1358 ml Intake Oral 240 ml 720 ml 480 ml 360 ml IV Total 1140 ml 998 ml # Voids 1 3 2 1 # Bowel Movements 0 0 0 0 Result Diagram: 06/14/16 0644 06/14/16 0644 Imaging Last Impressions Renal Ultrasound 06/11/16 1157 Signed Impressions: Service Date/Time: June 12:39 - CONCLUSION: Mild right hydronephrosis. This is a finding commonly seen in . Diffuse color Doppler flow of the right kidney appears somewhat prominent. Question any clinical evidence of pyelonephritis. Lincoln Guevara MD Objective Remarks GENERAL: This is a well-nourished, well-developed patient, mild to moderate distress due to flank pain. Patient seen walking hunched over. SKIN: No rashes, ecchymoses or lesions. Warm and moist. HEAD: Atraumatic. Normocephalic. No temporal or scalp tenderness. EYES: Pupils equal round and reactive. Extraocular motions intact. No scleral icterus. No injection or drainage. ENT: Nose without bleeding, purulent drainage or septal hematoma. Throat without erythema, tonsillar hypertrophy or exudate. Uvula midline. Airway patent. NECK: Trachea midline. No JVD or lymphadenopathy. Supple, nontender, no meningeal signs. CARDIOVASCULAR: Regular rate and rhythm without murmurs, gallops, or rubs. RESPIRATORY: Clear to auscultation. Breath sounds equal bilaterally. No wheezes , rales, or rhonchi. GASTROINTESTINAL: Abdomen soft, tender to palpation of hypogastric region, gravid uterus, positive right CVA tenderness. No hepato-splenomegaly, or palpable masses. No guarding. MUSCULOSKELETAL: Extremities without clubbing, cyanosis, or edema. No joint tenderness, effusion, or edema noted. No calf tenderness. Negative Homans sign bilaterally. NEUROLOGICAL: Awake and alert. Cranial nerves II through XII intact. Motor and sensory grossly within normal limits. Five out of 5 muscle strength in all muscle groups. Normal speech. Medications and IVs Current Medications Medications (Trade) Dose Ordered Sig/Mann Route Start Time Stop Time Status Last Admin (NS 1000 ml Inj) 1,000 ml @ 100 mls/hr Q10H IV 06/11/16 14:57 06/13/16 16:57 (NS Flush) 2 ml UNSCH PRN FLUSH 06/11/16 15:00 (NS Flush) 2 ml BID FLUSH 06/11/16 21:00 06/13/16 11:14 (Tylenol) 650 mg Q4H PRN PO 06/11/16 15:00 (Heparin Inj) 5,000 units Q8H SQ 06/11/16 15:00 06/14/16 16:30 Acetaminophen 650 mg 650 mg Q6H PRN PO 06/11/16 15:00 (Rocephin Inj/NS Inj) 100 ml @ 200 mls/hr Q24H IV 06/11/16 16:00 06/14/16 16:29 (Protonix) 40 mg DAILY PO 06/12/16 09:00 06/14/16 09:16 (Percocet 5-325 Mg) 1 tab Q4H PRN PO 06/12/16 22:45 (Percocet 5-325 Mg) 2 tab Q4H PRN PO 06/12/16 22:45 06/14/16 16:29 (Morphine Inj) 2 mg Q3H PRN IV PUSH 06/12/16 22:45 06/12/16 22:54 (Dana-Colace) 1 tab BID PO 06/13/16 11:45 06/14/16 09:17 Urinary Catheter: No Vascular Central Line Catheter: No A/P Problem List: (1) Sepsis ICD Code: A41.9 Status: Acute (2) Pyelonephritis ICD Code: N12 Status: Acute (3) Early stage of ICD Code: Z33.1 Status: Acute (4) Hypotension ICD Code: I95.9 Status: Acute (5) Hypocalcemia ICD Code: E83.51 Status: Acute (6) Constipation ICD Code: K59.00 Status: Acute Assessment and Plan (1) Sepsis Plan: Sepsis due to pyelonephritis. Continue IV Rocephin. Urine cultures growing gram-negative rods.Fu ID and sensitivities. Will adjust antibiotics accordingly. Blood culture negative x3 sepsis resolving. (2) Pyelonephritis Plan: Continue IV antibiotics as above. Continue pain control w IV morphine and pain control. Renal ultrasound showed mild right hydronephrosis which as per report isn't, and finding in . Diffuse color Doppler flow of the right kidney appears somewhat permanent. Question any clinical evidence of pyelonephritis. If right flank pain continues to be severe and is not improving by tomorrow then I will consider doing a CT scan of the abdomen and pelvis. (3) Early stage of Plan: Appreciate obstetrics recommendations. Plan is to treat with IV antibiotics. Obstetrics ultrasound pending. (4) Hypotension Plan: Patient noted to be hypotensive on , the patient was given half a liter of normal saline IV bolus and IV fluids were continued. Hypotension still persistent and 06/13/16. I will give 500 ml IV normal saline bolus again today. Will increase NS to 125 ml/hr. 06/14 Bp much improved, continue IV fluids. (5) Hypocalcemia Plan: Likely due to decreased oral intake secondary to pyelonephritis and acute illness. I will replete with IV calcium chloride and continue to monitor CMP. 2/5 fu CMP. Assessment and Plan DVT prophylaxis: SCDs, heparin subcutaneous GI prophylaxis: PPI Discharge Planning DC in am if pain improved. Problem Qualifiers (1) Sepsis: Qualified Code: A41.9 - Sepsis, due to unspecified organism (2) Constipation: Qualified Code: K59.00 - Constipation, unspecified constipation type Wolfgang Gonzales MD Jun 14, 2016 14:56
[2016-06-14 16:11] VITALS: BP 101/50; PULSE 97; RESP 16; TEMP 98.3; O2SAT 99
[2016-06-14] MEDS: cefTRIAXone INJ 1,000 MG in SODIUM CHLORIDE 0.9% INJ 100 ML IV SCH (16:29)
[2016-06-14 20:28] VITALS: BP 98/56; PULSE 76; RESP 17; TEMP 97.5; O2SAT 100
[2016-06-15 00:26] VITALS: BP 93/49; PULSE 79; RESP 16; TEMP 96.7; O2SAT 100
[2016-06-15 04:34] VITALS: BP 95/52; PULSE 80; RESP 18; TEMP 97; O2SAT 100
[2016-06-15 04:41] LABS: AUTOMATED NEUTROPHIL # 1.7 TH/MM3 (1.8-7.7); BASOPHIL % 0.5 % (0.0-2.0); EOSINOPHIL # 0.1 TH/MM3 (0-0.4); EOSINOPHIL % 3.2 % (0.0-4.0); HEMATOCRIT 27.2 % (35.0-46.0); HEMO FLAGS DIFF FINAL; LYMPH % 47.3 % (9.0-44.0); LYMPHOCYTE # 2.2 TH/MM3 (1.0-4.8); MEAN CELL VOLUME 82.7 FL (80.0-100.0); MEAN CORPUSCULAR HEMOGLOBIN 28.7 PG (27.0-34.0); MEAN CORPUSCULAR HGB CONC 34.8 % (32.0-36.0); MONO % 12.6 % (0.0-8.0); NEUT % 36.4 % (16.0-70.0); PLATELET COUNT 163 TH/MM3 (150-450); RED BLOOD COUNT 3.29 MIL/MM3 (4.00-5.30); RED CELL DISTRIBUTION WIDTH 14.3 % (11.6-17.2); WHITE BLOOD COUNT 4.6 TH/MM3 (4.0-11.0)
[2016-06-15 05:00] LABS: ALT (GPT) 10 U/L (10-53); ANION GAP 8 MEQ/L (5-15); AST (GOT) 11 U/L (15-37); BICARBONATE 23.6 MEQ/L (21.0-32.0); BLOOD UREA NITROGEN 3 MG/DL (7-18); CHLORIDE 107 MEQ/L (98-107); GLOMERULAR FILTRATION RATE 152 ML/MIN (>89); MAGNESIUM 1.8 MG/DL (1.5-2.5); POTASSIUM 3.6 MEQ/L (3.5-5.1); SODIUM (NA) 139 MEQ/L (136-145)
[2016-06-15 05:02] LABS: ALKALINE PHOSPHATASE 43 U/L (45-117); TOTAL BILIRUBIN ADULT 0.2 MG/DL (0.2-1.0)
[2016-06-15 08:00] VITALS: BP 106/64; PULSE 80; RESP 18; TEMP 98.1; O2SAT 100
[2016-06-15] MEDS ORDERED: SODIUM CHLOR 0.9% 1000 ML INJ 1,000 ML IV ONE (08:30)
[2016-06-15] MEDS: SODIUM CHLOR 0.9% 1000 ML INJ 1,000 ML IV SCH (08:51)
[2016-06-15] MEDS ORDERED: CALCIUM CARBONATE 500 MG CHEWABLE TAB CHEW SCH (09:00)
[2016-06-15] MEDS: HEPARIN SODIUM - SQ 10,000 UNITS/ML VIAL SQ SCH (09:08)
[2016-06-15] MEDS: SODIUM CHLORIDE 0.9% FLUSH 5 ML FLUSH FLUSH SCH (09:09)
[2016-06-15] MEDS: oxyCODONE/ACETAMINOPHEN 5 MG/325 MG TAB PO PRN (09:09)
[2016-06-15] MEDS: PANTOPRAZOLE SOD 40 MG DELAYED RELEASE TAB PO SCH (09:09)
[2016-06-15] MEDS: DOCUSATE SODIUM 50 MG/SENNA 8.6 MG TAB PO SCH (09:09)
[2016-06-15] MEDS ORDERED: NITR100C4 PO (10:26)
[2016-06-15] MEDS ORDERED: SENN1TAB PO (10:26)
[2016-06-15] MEDS ORDERED: NORC5TAB PO (10:27)
[2016-06-15] MEDS ORDERED: VITA500C9 CHEW (10:30)
[2016-06-15] MEDS ORDERED: FOLI1TAB4 PO (10:30)
[2016-06-15] MEDS ORDERED: FERR1TAB36 PO (10:30)
--- NOTE | 2016-06-15 10:37 | HHI.DS ---
Discharge Summary Admission Date Jun 11, 2016 at 15:05 Discharge Date: Jun 15, 2016 Admitting Diagnosis /right sided pyelonephritis (1) Sepsis ICD Code: A41.9 Diagnosis: Principal (2) Pyelonephritis ICD Code: N12 Diagnosis: Principal (3) Early stage of ICD Code: Z33.1 Diagnosis: Secondary (4) Hypotension ICD Code: I95.9 Diagnosis: Principal (5) Hypocalcemia ICD Code: E83.51 Diagnosis: Principal (6) Constipation ICD Code: K59.00 Diagnosis: Secondary Procedures none Brief History - From Admission This is a 31-year-old female was currently 12 weeks who presents to [facility] complaining of onset of lower abdominal pain which started approximately 1 week ago. The patient states that she works at the [employer] and was prescribed an oral antibiotic that she dropped off at the pharmacy but never picked up. Patient states that the pain progressed up to the right flank pain. The patient complains of chills, feeling hot and cold however is unsure if she has had fevers. Patient also comments of nausea assays have vomited 3 times. The patient currently denies chest pain or shortness of breath and is complaining of severe right flank pain which she describes as 10 over 10 radiating down to the lower abdomen. Denies vaginal bleeding or vaginal discharge. Otherwise the patient denies diarrhea, cough, headache, dizziness, dark stools. CBC/BMP: 06/15/16 0337 06/15/16 0337 Significant Findings Laboratory Tests Test 06/13/16 06/14/16 06/15/16 12:35 06:44 03:37 Blood Urea Nitrogen 3 MG/DL (7-18) 1 MG/DL (7-18) 3 MG/DL (7-18) Calcium Level 7.9 MG/DL 7.8 MG/DL 8.0 MG/DL (8.5-10.1) (8.5-10.1) (8.5-10.1) Aspartate Amino Transf 11 U/L (15-37) 11 U/L (15-37) (AST/SGOT) Total Protein 6.1 GM/DL 5.6 GM/DL (6.4-8.2) (6.4-8.2) Albumin 2.4 GM/DL 2.3 GM/DL (3.4-5.0) (3.4-5.0) Red Blood Count 3.32 MIL/MM3 3.29 MIL/MM3 (4.00-5.30) (4.00-5.30) Hemoglobin 9.4 GM/DL 9.5 GM/DL (11.6-15.3) (11.6-15.3) Hematocrit 28.1 % 27.2 % (35.0-46.0) (35.0-46.0) Chloride Level 108 MEQ/L (98-107) Random Glucose 71 MG/DL (74-106) Lymphocytes (%) (Auto) 47.3 % (9.0-44.0) Monocytes (%) (Auto) 12.6 % (0.0-8.0) Neutrophils # (Auto) 1.7 TH/MM3 (1.8-7.7) Alkaline Phosphatase 43 U/L (45-117) Imaging Last Impressions Renal Ultrasound 06/11/16 1157 Signed Impressions: Service Date/Time: June 12:39 - CONCLUSION: Mild right hydronephrosis. This is a finding commonly seen in . Diffuse color Doppler flow of the right kidney appears somewhat prominent. Question any clinical evidence of pyelonephritis. Lincoln Guevara MD PE at Discharge GENERAL: This is a well-nourished, well-developed patient, mild to moderate distress due to flank pain. Patient seen walking hunched over. SKIN: No rashes, ecchymoses or lesions. Warm and moist. HEAD: Atraumatic. Normocephalic. No temporal or scalp tenderness. EYES: Pupils equal round and reactive. Extraocular motions intact. No scleral icterus. No injection or drainage. ENT: Nose without bleeding, purulent drainage or septal hematoma. Throat without erythema, tonsillar hypertrophy or exudate. Uvula midline. Airway patent. NECK: Trachea midline. No JVD or lymphadenopathy. Supple, nontender, no meningeal signs. CARDIOVASCULAR: Regular rate and rhythm without murmurs, gallops, or rubs. RESPIRATORY: Clear to auscultation. Breath sounds equal bilaterally. No wheezes , rales, or rhonchi. GASTROINTESTINAL: Abdomen soft, tender to palpation of hypogastric region, gravid uterus, positive right CVA tenderness. No hepato-splenomegaly, or palpable masses. No guarding. MUSCULOSKELETAL: Extremities without clubbing, cyanosis, or edema. No joint tenderness, effusion, or edema noted. No calf tenderness. Negative Homans sign bilaterally. NEUROLOGICAL: Awake and alert. Cranial nerves II through XII intact. Motor and sensory grossly within normal limits. Five out of 5 muscle strength in all muscle groups. Normal speech. Pt update on day of discharge Pelvis much better. Has some movement in the morning however no vomiting and was able to tolerate food. No fever or chills. Pain is better controlled today. Hospital Course (1) Sepsis Plan: Sepsis due to pyelonephritis. Continue IV Rocephin. Urine cultures growing gram-negative rods.Fu ID and sensitivities. Will adjust antibiotics accordingly. Blood culture negative x3 sepsis resolving. (2) Pyelonephritis Plan: Continue IV antibiotics as above. Continue pain control w IV morphine and pain control. Renal ultrasound showed mild right hydronephrosis which as per report isn't, and finding in . Diffuse color Doppler flow of the right kidney appears somewhat permanent. Question any clinical evidence of pyelonephritis. If right flank pain continues to be severe and is not improving by tomorrow then I will consider doing a CT scan of the abdomen and pelvis. (3) Early stage of Plan: Appreciate obstetrics recommendations. Plan is to treat with IV antibiotics. Obstetrics ultrasound pending. (4) Hypotension Plan: Patient noted to be hypotensive on , the patient was given half a liter of normal saline IV bolus and IV fluids were continued. Hypotension still persistent and 06/13/16. I will give 500 ml IV normal saline bolus again today. Will increase NS to 125 ml/hr. 2/5 Bp much improved, continue IV fluids. (5) Hypocalcemia Plan: Likely due to decreased oral intake secondary to pyelonephritis and acute illness. I will replete with IV calcium chloride and continue to monitor CMP. 25 fu CMP. Assessment and Plan DVT prophylaxis: SCDs, heparin subcutaneous GI prophylaxis: PPI (1) Sepsis Plan: Sepsis due to pyelonephritis. Continue IV Rocephin. Urine cultures growing gram-negative rods.Fu ID and sensitivities. Will adjust antibiotics accordingly. Blood culture negative x3 sepsis resolving. (2) Pyelonephritis Plan: Continue IV antibiotics as above. Continue pain control w IV morphine and pain control. Renal ultrasound showed mild right hydronephrosis which as per report isn't, and finding in . Diffuse color Doppler flow of the right kidney appears somewhat permanent. Question any clinical evidence of pyelonephritis. If right flank pain continues to be severe and is not improving by tomorrow then I will consider doing a CT scan of the abdomen and pelvis. (3) Early stage of Plan: Appreciate obstetrics recommendations. Plan is to treat with IV antibiotics. Obstetrics ultrasound pending. (4) Hypotension Plan: Patient noted to be hypotensive on , the patient was given half a liter of normal saline IV bolus and IV fluids were continued. Hypotension still persistent and 06/13/16. I will give 500 ml IV normal saline bolus again today. Will increase NS to 125 ml/hr. 06/14 Bp much improved, continue IV fluids. (5) Hypocalcemia Plan: Likely due to decreased oral intake secondary to pyelonephritis and acute illness. I will replete with IV calcium chloride and continue to monitor CMP. 06/14 fu CMP. Assessment and Plan DVT prophylaxis: SCDs, heparin subcutaneous GI prophylaxis: PPI Improved. Discharged home in stable condition. Patient will follow-up with PCP consult as patient Pt Condition on Discharge: Fair Discharge Disposition: Discharge Home Discharge Time: <= 30 minutes Discharge Instructions DIET: Follow Instructions for: As Tolerated, No Restrictions Activities you can perform: Regular-No Restrictions Follow up Referrals: [facility] - 1 Week PCP Follow-up - 3-5 Days New Medications: Ascorbic Acid (Vitamin C) 500 Mg Chew 500 MG CHEW DAILY Nutritional Supplement #30 Ref 0 TAB Ferrous Sulfate (Iron) 325 Mg Tab 325 MG PO DAILY Take Nutritional Supplement #30 Ref 0 TAB Folic Acid (Folate) 1 Mg Tab 1 MG PO DAILY Nutritional Supplement #30 Ref 0 TAB Hydrocodone-Acetaminophen ([place]) 5-325 mg Tab 1 TAB PO Q4H PRN PAIN #14 Ref 0 TAB Nitrofurantoin Monohydrate Macrocrystals (Nitrofurantoin Monohydrate Macrocrystals) 100 Mg Cap 100 MG PO BID Infection #14 Ref 0 CAP Sennosides-Docusate Sodium (Senna Plus 8.6-50 mg) 1 Tab Tab 1 TAB PO BID Constipation #60 TAB Continued Medications: Vitamin ([place]) 1 Tab Tab 1 TAB PO DAILY Odalis Hodges MD Jun 15, 2016 10:28
--- NOTE | 2016-06-15 10:37 | HHI.DCPOC ---
Discharge Care Plan Goals to Promote Your Health * To prevent worsening of your condition and complications * To maintain your health at the optimal level Directions to Meet Your Goals Take your medications as prescribed Follow your dietary instruction Follow activity as directed Keep your appointments as scheduled Take your immunizations and boosters as scheduled If your symptoms worsen call your PCP, if no PCP go to Urgent Care Center or Emergency Room Smoking is Dangerous to Your Health. Avoid second hand smoke Call the 24-hour hour crisis hotline for domestic abuse at Odalis Hodges MD Jun 15, 2016 10:27
[2016-06-15 12:00] VITALS: BP 102/65; PULSE 89; RESP 18; TEMP 96.7; O2SAT 100
== END 2016-06-15 13:20 | disposition home or self-care (01) | DRG 781 ==
LOC: NEPE 11:34 → NEDA 14:17 → OBSVTOIN 15:05 → NEDA 17:43 → NEDH 19:47 → N06A 23:27
PROVIDERS: ADMIT Hospitalist; ATTEND Hospitalist
DX: O98.811 Other maternal infectious and parasitic diseases complicating pregnancy, first trimester (principal); A41.9 Sepsis, unspecified organism; N12 Tubulo-interstitial nephritis, not specified as acute or chronic; O26.891 Other specified pregnancy related conditions, first trimester; I95.9 Hypotension, unspecified; E83.51 Hypocalcemia; K59.00 Constipation, unspecified; Z3A.12 12 weeks gestation of pregnancy
CPT/HCPCS: 76775; 76801; 80048; 80053; 81001; 83605; 83735; 84100; 85025; 85027; 87040; 87077; 87086; 87186; 96374; 96375; 96376; J0295; J0696; J1644; J2270; J2405; J7030; J7040

== ENCOUNTER 2016-08-02 12:02 | Emergency (ER) | payer MEDICAID ==
[~2016-08-02 12:02] MED LIST changes: -ACET500T3 PO; +CALNTAB PO; +FERR1TAB36 PO; +FOLI1TAB4 PO; +NITR100C4 PO; +NORC5TAB PO; +SENN1TAB PO; +VITA500C9 CHEW; -ZOFR4TAB3 SL
[2016-08-02 12:10] VITALS: BP 110/70; PULSE 126; RESP 20; TEMP 98; O2SAT 96
[2016-08-02 12:23] VITALS: PULSE 112; RESP 21; O2SAT 99
[2016-08-02 12:33] VITALS: BP 112/70; PULSE 110; RESP 18; O2SAT 99
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
[2016-08-02] MEDS ORDERED: ACETAMINOPHEN 325 MG TAB PO ONE (13:15)
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
[2016-08-02 14:49] VITALS: BP 108/73
== END 2016-08-02 14:50 | disposition home or self-care (01) ==
LOC: PHED 12:02
DX: O26.92 Pregnancy related conditions, unspecified, second trimester (principal); S39.012A Strain of muscle, fascia and tendon of lower back, initial encounter; S60.222A Contusion of left hand, initial encounter; Z3A.20 20 weeks gestation of pregnancy; Y04.0XXA Assault by unarmed brawl or fight, initial encounter; Y92.9 Unspecified place or not applicable; Y93.89 Activity, other specified; Y99.8 Other external cause status
CPT/HCPCS: 73120; 99284